=== PATIENT | female | born 1985 | race Caucasian/White ===

== ENCOUNTER → 2017-05-10 | Outpatient (CLI) | payer OTHER ==
--- NOTE | 2017-05-11 08:06 | NM ---
EXAMINATION TYPE: NM hepatobiliary w EF DATE OF EXAM: 05/10/2017 COMPARISON: NONE HISTORY: Right upper quadrant pain TECHNIQUE: After the intravenous administration of 5.28 mCi Tc 99m Mebrofenin hepatobiliary scintigra phy is performed. Immediate images post injection. FINDINGS: There is prompt uptake of the tracer by the liver that has normal size and contour. There is no focal defect. There is tracer in the small bowel at 10 minutes. Tracer is mostly cleared from the liver at 60 minutes. There is delayed appearance of tracer in the gallbladder. The poststimulation images kishan w gallbladder ejection fraction of 82%. IMPRESSION: Normal hepatobiliary scan.
== END | disposition home or self-care (01) ==
LOC: RADNMMAIN 13:11
PROVIDERS: ATTEND Pediatrics
DX: R10.11 Right upper quadrant pain (principal)
CPT/HCPCS: 78226; A9537

== ENCOUNTER → 2017-11-01 | Outpatient (CLI) | payer OTHER ==
--- NOTE | 2017-11-02 00:21 | MR ---
EXAMINATION TYPE: MR hand RT wo con DATE OF EXAM: 11/01/2017 COMPARISON: NONE HISTORY: Retained FB in rt hand, between 3rd webbing, pt states she has hair that comes out of small hole in this area Standard multiplanar, multisequence MRI departmental protocol Multiplanar, multisequence images of the right hand were acquired. FINDINGS: The metacarpals appear intact. The phalanges have normal signal pattern without evidence of edema. Joint spaces are fairly normal. I see no focal bone destruction. The flexor and extensor tend ons of the hand appear intact. The carpal bones appear intact. On the T1 coronal images there is a 6 mm rounded area of decreased signal on the skin surface and sub cutaneous tissues on the lateral aspect of the proximal fourth metacarpal. This should be correlated with physical exam. This could be a site of foreign body or foreign body reaction. IMPRESSION: 6 mm area of altered signal in the subcutaneous tissues as above adjacent to the fourth metacarpal on the lateral aspect that could be site of foreign body reaction or granuloma. No bony abnormality cathy ntified. No metal artifact seen. Foreign body is not characterized.
== END | disposition home or self-care (01) ==
LOC: RADMRIMAIN 20:03
PROVIDERS: ATTEND Orthopaedic Surgery
DX: Z18.9 Retained foreign body fragments, unspecified material (principal)

== ENCOUNTER → 2018-02-13 | Outpatient (CLI) | payer OTHER ==
--- NOTE | 2018-02-13 15:28 | FL ---
EXAMINATION TYPE: FL hysterosalpingography DATE OF EXAM: 02/13/2018 HISTORY: Infertility. PROCEDURE: 6 fluoroscopic images were obtained and 25 seconds of fluoroscopy time was utilized. Informed consent was obtained and all the patient's questions were answered. Preliminary film of the pelvis reveals no distinct abnormality. A speculum was introduced and the external cervical os was l ocalize. The external vagina and vaginal cuff was cleansed Betadine solution on 3 occasions. Hyster osalpingography catheter was introduced into the uterus and balloon insufflation device deployed. Ap proximately 8 cc of nonionic contrast was injected in a retrograde manner. The uterus has a normal size shape and appearance. No persistent uterine filling defects are seen. Initially the right fallopian tube did not fill with contrast spilling into the vaginal cuff, however upon increased pressure the right fallopian tube readily filled and subsequently there was bilateral spill of contrast into the peritoneal cavity. IMPRESSION: Patency of the fallopian tubes with bilateral spill of contrast into the peritoneal cavit y.
== END | disposition home or self-care (01) ==
LOC: RADFLWHC 13:26
PROVIDERS: ATTEND Obstetrics & Gynecology
DX: N97.9 Female infertility, unspecified (principal)
CPT/HCPCS: 58340; 74740; Q9967

== ENCOUNTER 2018-03-04 00:31 | Emergency (ER) | payer OTHER ==
[2018-03-04 00:38] VITALS: RESP 18
[2018-03-04] MEDS ORDERED: diphenhydrAMINE 50 MG/ML 1 ML VIAL IVP STA (01:44)
[2018-03-04] MEDS ORDERED: SODIUM CHLORIDE 0.9% 1,000 ML IV STA (01:44)
[2018-03-04] MEDS ORDERED: METOCLOPRAMIDE 5 MG/ML 2 ML VIAL IVP STA (01:44)
[2018-03-04] MEDS ORDERED: KETOROLAC 30 MG/ML 1 ML VIAL IVP STA (01:44)
--- NOTE | 2018-03-04 02:08 | ED ---
Headache HPI - General Chief Complaint: Headache Stated Complaint: Migraine Time Seen by Provider: 03/04/18 01:41 Source: patient, RN notes reviewed Mode of arrival: ambulatory Limitations: no limitations - History of Present Illness Initial Comments: This is a 32-year-old female who presents to the emergency department with chief complaint of migraine headache. Patient does report she has a history migraine headaches. She states that she has had this headache since Saturday intermittently. She states that she was taking Excedrin Migraine at home. She presented to her primary care physician this morning who gave her a shot of Toradol. She states that this did not help. She denies any recent falls, injury or trauma. She denies dizziness or vision changes. Denies fevers or chills. Does report associated nausea but denies vomiting or abdominal pain. - Related Data Home Medications Medication Instructions Recorded Confirmed traMADol HCl [Ultram] 50 mg PO Q6H PRN 10/28/14 03/04/18 Previous Rx's Medication Instructions Recorded Ibuprofen [Motrin] 800 mg PO Q6HR PRN #20 tab 10/28/14 Orphenadrine [Norflex] 100 mg PO Q12H #7 tablet.er 10/28/14 Allergies Allergy/AdvReac Type Severity Reaction Status Date / Time No Known Allergies Allergy Verified 03/04/18 00:38 Review of Systems ROS Statement: Those systems with pertinent positive or pertinent negative responses have been documented in the HPI. ROS Other: All systems not noted in ROS Statement are negative. Past Medical History Past Medical History: No Reported History History of Any Multi-Drug Resistant Organisms: None Reported Additional Past Surgical History / Comment(s): LEFT AND RIGHT HAND SURGERY Past Psychological History: ADD/ADHD Smoking Status: Never smoker Past Alcohol Use History: None Reported Past Drug Use History: None Reported General Exam - General Exam Comments Initial Comments: General: Awake and alert, well-developed; in no apparent distress. Lying comfortable on ED stretcher. HEENT: Head atraumatic, normocephalic. Pupils are equal, round and reactive to light. Extraocular movements intact. Oropharynx moist without erythema or exudate. Neck: Supple. Normal ROM. Cardiovascular: Regular rate and rhythm. No murmurs, rubs or gallops. Chest symmetrical. Respiratory: Lungs clear to auscultation bilaterally. No wheezes, rales or rhonchi. Normal respiratory effort with no use of accessory muscles. Musculoskeletal: Normal ROM, no tenderness bilateral upper and lower extremities. Ambulating normally. Skin: [place], warm and dry without rashes or lesions. Neurological: Alert and oriented x3. CN II-XII grossly intact. Speech is fluent and answers are appropriate. No focal neuro deficits. Psychiatric: Normal mood and affect. No overt signs of depression or anxiety noted. Limitations: no limitations Course Vital Signs 03/04/18 00:34 Temperature 98.2 F Pulse Rate 81 Respiratory 18 Rate Blood Pressure 124/85 O2 Sat by Pulse 94 L Oximetry Medical Decision Making - Medical Decision Making This is a 32-year-old female who presents to the emergency department with chief complaint of migraine headache. Patient does report a history of migraine headaches. This headache feels no different from her previous episodes. Patient given fluids and headache cocktail while in the emergency department. Patient states that her symptoms have improved. Vital signs are stable she is in no acute distress. She will be discharged home at this time. Disposition Clinical Impression: Headache Disposition: HOME SELF-CARE Condition: Good Instructions: Acute Headache (ED) Additional Instructions: Please follow up with primary care provider within 1-2 days. Return to emergency department if symptoms should worsen or any concerns arise. Is patient prescribed a controlled substance at d/c from ED?: No Referrals: Bairon Rm MD [Primary Care Provider] - 1-2 days Time of Disposition: 03:45
[2018-03-04 03:46] VITALS: BP 120/68; PULSE 89; TEMP 97.9
== END 2018-03-04 04:03 | disposition home or self-care (01) ==
LOC: EC 00:31
DX: R51 Headache (principal); Z86.69 Personal history of other diseases of the nervous system and sense organs
CPT/HCPCS: 99283; 96374; 96375 ×2; 96361 ×2; J1200; J2765; J1885

== ENCOUNTER 2018-03-05 10:40 | Emergency (ER) | payer OTHER ==
[2018-03-05 10:49] VITALS: TEMP 98
[2018-03-05] MEDS ORDERED: SODIUM CHLORIDE 0.9% 500 ML IV ONE (11:33)
[2018-03-05] MEDS ORDERED: LORazepam 2 MG/ML INJ IV STA (11:35)
[2018-03-05] MEDS ORDERED: IBUPROFEN IV 600 MG in SODIUM CHLORIDE 0.9% 250 ML IV STA (11:37)
[2018-03-05] MEDS ORDERED: PROMETHAZINE INJ 25 MG/ML 1 ML VIAL IM STA (11:38)
--- NOTE | 2018-03-05 11:39 | ED ---
General Adult HPI - General Chief complaint: Headache Stated complaint: Headache Time Seen by Provider: 03/05/18 10:45 Source: patient, RN notes reviewed Mode of arrival: ambulatory Limitations: no limitations - History of Present Illness Initial comments: This is a 32-year-old female who comes in complaining of a headache. Patient states started slowly on Saturday got worse until Saturday. She states on Saturday she went and saw her primary medical care doctor he gave her some medicine. It didn't help that much and later that evening she showed up at the emergency department. Patient states she received medication there felt better went home however Saturday was miserable all day and she went back and saw her primary medical care doctor again and was given some medication but she woke up this morning continued to have her headache. Patient states bilateral and frontal in nature she states it feels like a pressure. Patient states coughing or sneezing makes it pain worse. Patient denies any congestion or actual frontal bone tenderness. Patient denies any numbness or weakness. Patient denies any visual disturbance or speech disturbance. Patient states she did vomit once yesterday. Patient states she's nauseated today. Patient states she has occasional headaches but this one is different. Patient denies any diagnosis of migraine headaches. - Related Data Home Medications Medication Instructions Recorded Confirmed Omeprazole [Omeprazole] 40 mg PO DAILY 03/05/18 03/05/18 SUMAtriptan SUCCINATE [Sumavel 6 mg SQ ONCE PRN 03/05/18 03/05/18 Dosepro] Allergies Allergy/AdvReac Type Severity Reaction Status Date / Time No Known Allergies Allergy Verified 03/05/18 11:35 Review of Systems ROS Statement: Those systems with pertinent positive or pertinent negative responses have been documented in the HPI. ROS Other: All systems not noted in ROS Statement are negative. Past Medical History Past Medical History: No Reported History Additional Past Medical History / Comment(s): migraines History of Any Multi-Drug Resistant Organisms: None Reported Additional Past Surgical History / Comment(s): LEFT AND RIGHT HAND SURGERY Past Psychological History: ADD/ADHD Smoking Status: Never smoker Past Alcohol Use History: None Reported Past Drug Use History: None Reported General Exam - General Exam Comments Initial Comments: GENERAL: Patient is well-developed and well-nourished. Patient is nontoxic and well- hydrated and is in mild distress. ENT: Neck is soft and supple. No significant lymphadenopathy is noted. Oropharynx is clear. Moist mucous membranes. Neck has full range of motion without eliciting any pain. EYES: The sclera were anicteric and conjunctiva were pink and moist. Extraocular movements were intact and pupils were equal round and reactive to light. Eyelids were unremarkable. PULMONARY: Unlabored respirations. Good breath sounds bilaterally. No audible rales rhonchi or wheezing was noted. CARDIOVASCULAR: There is a regular rate and rhythm without any murmurs gallops or rubs. ABDOMEN: Soft and nontender with normal bowel sounds. SKIN: Skin is clear with no lesions or rashes and otherwise unremarkable. NEUROLOGIC: Patient is alert and oriented x3. Cranial nerves II through XII are grossly intact. Motor and sensory are also intact. Normal speech, volume and content. Symmetrical smile. Cerebellar exam grossly intact. Patient has no photophobia MUSCULOSKELETAL: Normal extremities with adequate strength and full range of motion. LYMPHATICS: No significant lymphadenopathy is noted PSYCHIATRIC: Normal psychiatric evaluation. Limitations: no limitations Course Vital Signs 03/05/18 03/05/18 10:46 14:38 Temperature 98.0 F Pulse Rate 87 70 Respiratory 18 16 Rate Blood Pressure 130/81 105/61 O2 Sat by Pulse 98 98 Oximetry Medical Decision Making - Medical Decision Making CT of the brain shows a possible pituitary hemorrhage. Radiology is recommending an MRI for confirmation. MRI was done MRI did show a pituitary bleed. - Lab Data Result diagrams: 03/05/18 11:47 03/05/18 11:47 Lab Results 03/05/18 03/05/18 03/05/18 Range/Units 11:47 11:47 12:15 WBC 9.0 (3.8-10.6) k/uL RBC 4.83 (3.80-5.40) m/uL Hgb 14.4 (11.4-16.0) gm/dL Hct 41.2 (34.0-46.0) % MCV 85.3 (80.0-100.0) fL MCH 29.8 (25.0-35.0) pg MCHC 34.9 (31.0-37.0) g/dL RDW 13.2 (11.5-15.5) % Plt Count 269 (150-450) k/uL Neutrophils % 80 % Lymphocytes % 15 % Monocytes % 3 % Eosinophils % 1 % Basophils % 0 % Neutrophils # 7.2 (1.3-7.7) k/uL Lymphocytes # 1.3 (1.0-4.8) k/uL Monocytes # 0.3 (0-1.0) k/uL Eosinophils # 0.1 (0-0.7) k/uL Basophils # 0.0 (0-0.2) k/uL Sodium 142 (137-145) mmol/L Potassium 4.3 (3.5-5.1) mmol/L Chloride 106 (98-107) mmol/L Carbon Dioxide 22 (22-30) mmol/L Anion Gap 14 mmol/L BUN 11 (7-17) mg/dL Creatinine 0.68 (0.52-1.04) mg/dL Est GFR (CKD-EPI)AfAm >90 (>60 ml/min/1.73 sqM) Est GFR (CKD-EPI)NonAf >90 (>60 ml/min/1.73 sqM) Glucose 115 H (74-99) mg/dL Calcium 9.2 (8.4-10.2) mg/dL Total Bilirubin 0.7 (0.2-1.3) mg/dL AST 21 (14-36) U/L ALT 42 (9-52) U/L Alkaline Phosphatase 49 (38-126) U/L Total Protein 7.3 (6.3-8.2) g/dL Albumin 4.6 (3.5-5.0) g/dL Urine Color Urine Appearance (Clear) Urine pH (5.0-8.0) Ur Specific [place] (1.001-1.035) Urine Protein (Negative) Urine Glucose (UA) (Negative) Urine Ketones (Negative) Urine Blood (Negative) Urine Nitrite (Negative) Urine Bilirubin (Negative) Urine Urobilinogen (<2.0) mg/dL Ur Leukocyte Esterase (Negative) Urine WBC (0-5) /hpf Ur Squamous Epith Cells (0-4) /hpf Amorphous Sediment (None) /hpf Urine Bacteria (None) /hpf Urine Mucus (None) /hpf Urine HCG, Qual Not Detected (Not Detectd) 03/05/18 Range/Units 12:15 WBC (3.8-10.6) k/uL RBC (3.80-5.40) m/uL Hgb (11.4-16.0) gm/dL Hct (34.0-46.0) % MCV (80.0-100.0) fL MCH (25.0-35.0) pg MCHC (31.0-37.0) g/dL RDW (11.5-15.5) % Plt Count (150-450) k/uL Neutrophils % % Lymphocytes % % Monocytes % % Eosinophils % % Basophils % % Neutrophils # (1.3-7.7) k/uL Lymphocytes # (1.0-4.8) k/uL Monocytes # (0-1.0) k/uL Eosinophils # (0-0.7) k/uL Basophils # (0-0.2) k/uL Sodium (137-145) mmol/L Potassium (3.5-5.1) mmol/L Chloride (98-107) mmol/L Carbon Dioxide (22-30) mmol/L Anion Gap mmol/L BUN (7-17) mg/dL Creatinine (0.52-1.04) mg/dL Est GFR (CKD-EPI)AfAm (>60 ml/min/1.73 sqM) Est GFR (CKD-EPI)NonAf (>60 ml/min/1.73 sqM) Glucose (74-99) mg/dL Calcium (8.4-10.2) mg/dL Total Bilirubin (0.2-1.3) mg/dL AST (14-36) U/L ALT (9-52) U/L Alkaline Phosphatase (38-126) U/L Total Protein (6.3-8.2) g/dL Albumin (3.5-5.0) g/dL Urine Color Yellow Urine Appearance Cloudy H (Clear) Urine pH 7.5 (5.0-8.0) Ur Specific [place] 1.015 (1.001-1.035) Urine Protein Negative (Negative) Urine Glucose (UA) Negative (Negative) Urine Ketones Negative (Negative) Urine Blood Negative (Negative) Urine Nitrite Positive H (Negative) Urine Bilirubin Negative (Negative) Urine Urobilinogen <2.0 (<2.0) mg/dL Ur Leukocyte Esterase Small H (Negative) Urine WBC 3 (0-5) /hpf Ur Squamous Epith Cells 10 H (0-4) /hpf Amorphous Sediment Few H (None) /hpf Urine Bacteria Few H (None) /hpf Urine Mucus Occasional H (None) /hpf Urine HCG, Qual (Not Detectd) Disposition Clinical Impression: Pituitary hemorrhage Disposition: OTHER INSTITUTION NOT DEFINED Is patient prescribed a controlled substance at d/c from ED?: No Referrals: Bairon Rm MD [Primary Care Provider] - 1-2 days Time of Disposition: 16:16 - Out of Hospital Transfer - Req. Specs Out of Hospital Transfer - Requested Specifics: Other Emergency Center ([facility])
[2018-03-05 11:57] LABS: Basophils % (A) 0 %; Eosinophils # (A) 0.1 k/uL (0-0.7); Eosinophils % (A) 1 %; HCT 41.2 % (34.0-46.0); HGB 14.4 gm/dL (11.4-16.0); Lymphocytes # (A) 1.3 k/uL (1.0-4.8); Lymphocytes % (A) 15 %; MCH 29.8 pg (25.0-35.0); MCHC 34.9 g/dL (31.0-37.0); MCV 85.3 fL (80.0-100.0); Monocytes # (A) 0.3 k/uL (0-1.0); Monocytes % (A) 3 %; Neutrophils # (A) 7.2 k/uL (1.3-7.7); Neutrophils % (A) 80 %; Platelet Count 269 k/uL (150-450); RBC 4.83 m/uL (3.80-5.40); RDW 13.2 % (11.5-15.5)
[2018-03-05 12:06] LABS: ALT 42 U/L (9-52); AST 21 U/L (14-36); Albumin 4.6 g/dL (3.5-5.0); Alkaline Phosphatase 49 U/L (38-126); Anion Gap 14 mmol/L; Blood Urea Nitrogen 11 mg/dL (7-17); Calcium 9.2 mg/dL (8.4-10.2); Carbon Dioxide 22 mmol/L (22-30); Chloride 106 mmol/L (98-107); Glucose 115 mg/dL (74-99); Potassium 4.3 mmol/L (3.5-5.1); Sodium 142 mmol/L (137-145); Total Bilirubin 0.7 mg/dL (0.2-1.3); Total Protein 7.3 g/dL (6.3-8.2)
[2018-03-05 12:45] LABS: Amorphous Sediment,Urine Few /hpf; Appearance,Urine Cloudy (Clear); Bacteria,Urine Few /hpf; Bilirubin,Urine Negative (Negative); Blood,Urine Negative (Negative); Color,Urine Yellow; Glucose,Urine (UA) Negative (Negative); Ketones,Urine Negative (Negative); Leukocyte Esterase,Urine Small (Negative); Mucus,Urine Occasional /hpf; Nitrite,Urine Positive (Negative); PH, Urine 7.5 (5.0-8.0); Protein,Urine Negative (Negative); Specific Gravity,Urine 1.015 (1.001-1.035); Squamous Epithelial Cell,Urine 10 /hpf (0-4); Urobilinogen,Urine <2.0 mg/dL (<2.0); WBC,Urine 3 /hpf (0-5)
--- NOTE | 2018-03-05 13:46 | CT ---
EXAMINATION TYPE: CT brain wo con DATE OF EXAM: 03/05/2018 COMPARISON: NONE INDICATION: Headache DLP: 1121 mGycm, Automated exposure control for dose reduction was used. CONTRAST: None CT of the brain is performed utilizing 3 mm thick sections through the posterior fossa and 3 mm thick sections through the remaining calvarium. Study is performed within 24 hours of arrival to the hosp ital. No abnormal hyperdensity is present to suggest an acute intracranial hemorrhage. No mass lesion is evident. There is fullness in the pituitary region which does not appear out of pro portion to the patient's age. However, the density within the pituitary is slightly increased and the re is some increased density into the left and right suprasellar cistern region. This is felt to pote ntially be artifact similar to artifact in the posterior fossa adjacent to the calvarium. However, gi garry the patient's symptoms of headache the potential of pituitary hemorrhage should be considered. Co nsensus review was performed. MRI with contrast would be recommended to evaluate this region. Report was called to the emergency room physician by Dr. Lynn by telephone 1330 hours 03/05/2018. No acute infarcts are evident. Ventricles and sulci are appropriate for the patient age. Paranasal sinuses and mastoid air cells within the [id number] are clear. IMPRESSIONS: 1. Increased density in the region of the suprasellar cistern and in the pituitary region. While ar tifact is suspected, hemorrhage cannot be excluded. MRI with contrast of the pituitary is recommended for additional evaluation.
[2018-03-05 14:39] VITALS: RESP 16
--- NOTE | 2018-03-05 15:50 | MR ---
EXAMINATION TYPE: MR pituitary wo/w con DATE OF EXAM: 03/05/2018 COMPARISON: CT brain 03/05/2018 HISTORY: Headaches CONTRAST: Performed utilizing 10 mL intravenous Gadavist gadolinium contrast. TECHNIQUE: Multiplanar, multiecho imaging on a 3.0 Darshana magnet is performed through the pituitary. Study is performed within 24 hours of arrival to the hospital. Pre and postcontrast imaging is perfor med. The craniovertebral junction is normal. The pituitary is enlarged and smooth bordered measuring 1.3 cm craniocaudal dimension by 2.1 cm trans verse dimension by 1.3 cm in AP dimension. Within the lower portion of the pituitary on T1 sequences there is hyperintensity measuring approximately 0.7 cm previous is anterior to the expected posterior portion of the pituitary. This area is larger with low signal on T2-weighted images ([place] artifa ct) which can be compatible with a subacute hemorrhage within this region. Differential diagnosis cou ld include craniopharyngioma or Rathke's cleft cyst however the epicenter suggest these to be less li vanessa. The enlarged pituitary extends to the optic chiasm with very minimal bowing noted on the optic chiasm on the T2-weighted images in the coronal plane. The pituitary stalk appears midline. The enlarged pi tuitary has contact with the bilateral internal carotid arteries at the carotid siphons. No encasemen t however is evident. IMPRESSIONS: 1. Enlarged pituitary with internal signal compatible with internal pituitary hemorrhage. No free hem orrhage within the extra-axial space is not identified.
[2018-03-05 16:40] LABS: INR 1.1 (<1.2); Partial Thromboplastin Time 24.2 sec (22.0-30.0); Prothrombin Time 10.4 sec (9.0-12.0)
[2018-03-05 17:17] VITALS: BP 128/78; PULSE 68
== END 2018-03-05 17:05 | disposition other institution (70) ==
LOC: EC 10:40
DX: E23.6 Other disorders of pituitary gland (principal); R51 Headache; R11.2 Nausea with vomiting, unspecified; Z79.899 Other long term (current) drug therapy
CPT/HCPCS: 36415; 80053; 85025; 85610; 85730; 81001; 81025; 87086; 70450; 70553; 99285; 96365; 96375; 96372; J2060; J2550; J1741; A9581

== ENCOUNTER 2018-03-09 16:22 | Emergency (ER) | payer OTHER ==
[2018-03-09] MEDS ORDERED: SODIUM CHLORIDE 0.9% 1,000 ML IV STA (16:50)
[2018-03-09] MEDS ORDERED: ONDANSETRON 4 MG/2 ML VIAL IVP STA (16:51)
[2018-03-09] MEDS ORDERED: ACETAMINOPHEN TAB 500 MG TAB PO STA (16:56)
[2018-03-09] MEDS ORDERED: METOCLOPRAMIDE 5 MG/ML 2 ML VIAL IVP STA (16:56)
--- NOTE | 2018-03-09 17:02 | ED ---
General Adult HPI - General Chief complaint: Headache Stated complaint: Headache Source: patient Mode of arrival: wheelchair Limitations: no limitations - History of Present Illness Initial comments: Chief Complaint: 32-year-old female past medical history of polycystic ovarian syndrome presents with headache. History of Present Illness: Patient is a 32-year-old female with past medical history polycystic ovarian syndrome presents with headache. Patient was seen here twice last week. She was seen Saturday for chief complaint of headache. She was discharged home. On Saturday she return where computed tomography scan was performed showing disease to the pituitary gland. MRI was then performed showing possible hemorrhage in the pituitary gland. She was transferred to [facility] in [place] where she was evaluated by their medical team. Patient is completely by family who states that she was seen there and repeat MRI was obtained. She was discharged with instructions to follow up with primary care physician and neurologist. Patient has an appointment for Saturday. Today she began having worsening headache symptoms and associated nausea and vomiting. The plan was to take patient to [facility] however they didn' t feel like they could make it in time. The live locally and decided to bring her to our emergency department. Patient denies any fever, chills or night sweats. No neurologic deficit. She localizes the headache to her right frontal area. Family accompanies patient reports that they had checked her optic disc and was told by their medical staff that there was no papilledema. Past Medical History: PCOS Past Surgical History:[reviewed, none to report] Social History: [denies alcohol, tobacco or illicit drug use] Family History: reviewed and noncontributory The ROS documented in this emergency department record has been reviewed and confirmed by me. Those systems with pertinent positive or negative responses have been documented in the HPI. All other systems are other negative and/or noncontributory. - Related Data Home Medications Medication Instructions Recorded Confirmed Omeprazole [Omeprazole] 40 mg PO DAILY 03/05/18 03/05/18 SUMAtriptan SUCCINATE [[place]avel 6 mg SQ ONCE PRN 03/05/18 03/05/18 Dosepro] Previous Rx's Medication Instructions Recorded HYDROcodone/APAP 5-325MG [[place] 1 tab PO Q6HR PRN 3 Days #12 tab 03/09/18 5-325] Sulfamethox-Tmp 800-160Mg [Bactrim 1 tab PO Q12HR 5 Days #10 tab 03/09/18 DS 800-160 mg] Allergies Allergy/AdvReac Type Severity Reaction Status Date / Time No Known Allergies Allergy Verified 03/09/18 16:27 Review of Systems ROS Statement: Those systems with pertinent positive or pertinent negative responses have been documented in the HPI. ROS Other: All systems not noted in ROS Statement are negative. Past Medical History Past Medical History: No Reported History Additional Past Medical History / Comment(s): migraines History of Any Multi-Drug Resistant Organisms: None Reported Additional Past Surgical History / Comment(s): LEFT AND RIGHT HAND SURGERY Past Psychological History: ADD/ADHD Smoking Status: Never smoker Past Alcohol Use History: None Reported Past Drug Use History: None Reported General Exam - General Exam Comments Initial Comments: Vitals: Vital signs upon arrival shows findings within acceptable limits. PHYSICAL EXAM: General Impression: Alert and oriented x3, acute distress secondary to headache HEENT: Normocephalic atraumatic, extra-ocular movements intact, pupils equal and reactive to light bilaterally, mucous membranes moist. Cardiovascular: Heart regular rate and rhythm, S1&S2 audible, no murmurs, rubs or gallops Chest: Lungs clear to auscultation bilaterally, no rhonchi, no wheeze, no rales Abdomen: Bowel sounds present, abdomen soft, non-tender, non-distended, no organomegaly Musculoskeletal: Pulses present and equal in all extremities, no peripheral edema Motor: Power 5/5 bilaterally, no focal deficits noted Neurological: CN II-XII grossly intact, no focal motor or sensory deficits noted Skin: Intact with no visualized rashes Psych: Normal affect and mood Limitations: no limitations Course Vital Signs 03/09/18 03/09/18 03/09/18 16:25 18:37 19:33 Temperature 98.1 F 97.6 F Pulse Rate 91 59 L 59 L Respiratory 20 16 17 Rate Blood Pressure 124/84 119/67 132/73 O2 Sat by Pulse 97 99 96 Oximetry Medical Decision Making - Medical Decision Making Patient is a 32-year-old female who was 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 Patient has a complex medical course. She was seen at [facility] were repeat MRI was performed. She was then discharged told to follow up with neurologist. Patient denies any worsening of her symptoms however complains of persistent symptoms. Repeat labs obtained. Patient has mild leukocytosis secondary to stress. Basic metabolic panel shows acute processes. Urinalysis shows findings to suggest urinary tract infection. Discussed patient case with neurologist transportation refrigeration technician Dr. Cuellar and recommends repeat computed tomography scan of the head. Repeat computed tomography scan of the head shows improvement of findings compared to Saturday of last week. Patient reevaluated with improvement of symptoms. Patient given IV analgesics. Discussed patient that she should follow-up with neurology as soon as possible. Patient given follow-up information for Dr. cuellar. Patient is understandable and agreeable to plan. She is told to return to the emergency Department with any worsening headache symptoms. - Lab Data Result diagrams: 03/09/18 18:12 03/09/18 18:12 Lab Results 03/09/18 03/09/18 03/09/18 Range/Units 18:12 18:12 18:12 WBC 13.3 H (3.8-10.6) k/uL RBC 5.24 (3.80-5.40) m/uL Hgb 15.3 (11.4-16.0) gm/dL Hct 44.6 (34.0-46.0) % MCV 85.2 (80.0-100.0) fL MCH 29.3 (25.0-35.0) pg MCHC 34.4 (31.0-37.0) g/dL RDW 13.2 (11.5-15.5) % Plt Count 342 (150-450) k/uL Neutrophils % 82 % Lymphocytes % 12 % Monocytes % 4 % Eosinophils % 1 % Basophils % 0 % Neutrophils # 10.9 H (1.3-7.7) k/uL Lymphocytes # 1.6 (1.0-4.8) k/uL Monocytes # 0.6 (0-1.0) k/uL Eosinophils # 0.1 (0-0.7) k/uL Basophils # 0.0 (0-0.2) k/uL Sodium 140 (137-145) mmol/L Potassium 4.6 (3.5-5.1) mmol/L Chloride 103 (98-107) mmol/L Carbon Dioxide 23 (22-30) mmol/L Anion Gap 14 mmol/L BUN 19 H (7-17) mg/dL Creatinine 0.70 (0.52-1.04) mg/dL Est GFR (CKD-EPI)AfAm >90 (>60 ml/min/1.73 sqM) Est GFR (CKD-EPI)NonAf >90 (>60 ml/min/1.73 sqM) Glucose 102 H (74-99) mg/dL Calcium 9.2 (8.4-10.2) mg/dL Urine Color Yellow Urine Appearance Cloudy H (Clear) Urine pH 6.5 (5.0-8.0) Ur Specific Robert 1.022 (1.001-1.035) Urine Protein Trace H (Negative) Urine Glucose (UA) Negative (Negative) Urine Ketones 1+ H (Negative) Urine Blood Negative (Negative) Urine Nitrite Positive H (Negative) Urine Bilirubin Negative (Negative) Urine Urobilinogen <2.0 (<2.0) mg/dL Ur Leukocyte Esterase Small H (Negative) Urine RBC 2 (0-5) /hpf Urine WBC 3 (0-5) /hpf Ur Squamous Epith Cells 11 H (0-4) /hpf Urine Bacteria Many H (None) /hpf Urine Mucus Many H (None) /hpf Disposition Clinical Impression: Pituitary abnormality Disposition: HOME SELF-CARE Condition: Stable Prescriptions: HYDROcodone/APAP 5-325MG [[place] 5-325] 1 tab PO Q6HR PRN 3 Days #12 tab PRN Reason: Pain Sulfamethox-Tmp 800-160Mg [Bactrim DS 800-160 mg] 1 tab PO Q12HR 5 Days #10 tab Is patient prescribed a controlled substance at d/c from ED?: Yes When asked, does pt state using other controlled substances?: No Referrals: Bairon Rm MD [Primary Care Provider] - 1-2 days Zandra Cuellar MD [STAFF PHYSICIAN] - 1-2 days Time of Disposition: 19:51
[2018-03-09 18:28] LABS: Basophils % (A) 0 %; Eosinophils # (A) 0.1 k/uL (0-0.7); Eosinophils % (A) 1 %; HCT 44.6 % (34.0-46.0); HGB 15.3 gm/dL (11.4-16.0); Lymphocytes # (A) 1.6 k/uL (1.0-4.8); Lymphocytes % (A) 12 %; MCH 29.3 pg (25.0-35.0); MCHC 34.4 g/dL (31.0-37.0); MCV 85.2 fL (80.0-100.0); Monocytes # (A) 0.6 k/uL (0-1.0); Monocytes % (A) 4 %; Neutrophils # (A) 10.9 k/uL (1.3-7.7); Neutrophils % (A) 82 %; Platelet Count 342 k/uL (150-450); RBC 5.24 m/uL (3.80-5.40); RDW 13.2 % (11.5-15.5); WBC 13.3 k/uL (3.8-10.6)
[2018-03-09 18:31] LABS: Appearance,Urine Cloudy (Clear); Bacteria,Urine Many /hpf; Bilirubin,Urine Negative (Negative); Blood,Urine Negative (Negative); Color,Urine Yellow; Glucose,Urine (UA) Negative (Negative); Ketones,Urine 1+ (Negative); Leukocyte Esterase,Urine Small (Negative); Mucus,Urine Many /hpf; Nitrite,Urine Positive (Negative); PH, Urine 6.5 (5.0-8.0); Protein,Urine Trace (Negative); RBC,Urine 2 /hpf (0-5); Specific Gravity,Urine 1.022 (1.001-1.035); Squamous Epithelial Cell,Urine 11 /hpf (0-4); Urobilinogen,Urine <2.0 mg/dL (<2.0); WBC,Urine 3 /hpf (0-5)
[2018-03-09 18:41] LABS: Anion Gap 14 mmol/L; Blood Urea Nitrogen 19 mg/dL (7-17); Calcium 9.2 mg/dL (8.4-10.2); Carbon Dioxide 23 mmol/L (22-30); Chloride 103 mmol/L (98-107); Glucose 102 mg/dL (74-99); Potassium 4.6 mmol/L (3.5-5.1); Sodium 140 mmol/L (137-145)
--- NOTE | 2018-03-09 19:32 | CT ---
EXAMINATION TYPE: CT brain wo con DATE OF EXAM: 03/09/2018 COMPARISON: 03/05/2018 HISTORY: Headache x 10 days with photophobia and nausea, vomiting. CT DLP: 818.3 mGycm. Automated Exposure Control for Dose Reduction was Utilized. TECHNIQUE: CT scan of the head is performed without contrast. FINDINGS: Ventricles and sulci appear normal. There is no mass effect nor midline shift. There is no sign of acute intracranial hemorrhage. The calvarium is intact. There is prominent pituitary gland. 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 This appears smaller than l ast CT scan of 03/05/2018 and MR scan of 03/05/2018.
[2018-03-09] MEDS ORDERED: MORPHINE SULFATE 2 MG/ML SYRINGE IVP PRN (19:39)
[2018-03-09 20:25] VITALS: BP 119/74; PULSE 56; RESP 18; TEMP 98.3
== END 2018-03-09 20:25 | disposition home or self-care (01) ==
LOC: EC 16:22
DX: E23.7 Disorder of pituitary gland, unspecified (principal); R11.2 Nausea with vomiting, unspecified; D72.829 Elevated white blood cell count, unspecified; Z87.42 Personal history of other diseases of the female genital tract; Z79.899 Other long term (current) drug therapy
CPT/HCPCS: 36415; 80048; 85025; 81001; 70450; 99284; 96374; 96375; 96361 ×3; J2765; J2270

== ENCOUNTER → 2020-10-20 | Outpatient (CLI) | payer SELFPAY | END | disposition home or self-care (01) | LOC: LABWHC1 08:03 | PROVIDERS: ATTEND Obstetrics & Gynecology Reproductive Endocrinology | DX: Z01.812 Encounter for preprocedural laboratory examination (principal); Z20.822 Contact with and (suspected) exposure to COVID-19 | CPT/HCPCS: U0003; C9803 ==

== ENCOUNTER → 2020-10-31 | Outpatient (CLI) | payer OTHER | END | disposition home or self-care (01) | LOC: LABWHC1 13:49 | PROVIDERS: ATTEND Obstetrics & Gynecology Reproductive Endocrinology | DX: E28.2 Polycystic ovarian syndrome (principal) | CPT/HCPCS: 36415; 83498 ==

== ENCOUNTER → 2020-12-08 | Outpatient (CLI) | payer OTHER ==
[2020-12-09 02:54] LABS: Luteinizing Hormone 5.9 mIU/mL
[2020-12-09 02:55] LABS: Estradiol 35.3 pg/mL; Follicle Stimulating Hormone 5.4 mIU/mL
[2020-12-09 04:15] LABS: HCG,Quantitative Serum <2.0 mIU/mL
[2020-12-09 05:07] LABS: Varicella IgM Antibody 0.41 INDEX (<=0.90)
[2020-12-09 07:33] LABS: Progesterone 0.3 ng/mL
== END | disposition home or self-care (01) ==
LOC: LABWHC1 15:19
PROVIDERS: ATTEND Obstetrics & Gynecology Reproductive Endocrinology
DX: Z31.69 Encounter for other general counseling and advice on procreation (principal)
CPT/HCPCS: 36415; 81240; 82670; 83001; 83002; 84144; 84443; 84702; 86762; 86787; 86850; 86900; 86901

== ENCOUNTER 2020-12-28 18:27 | Emergency (ER) | payer OTHER ==
[2020-12-28 20:27] VITALS: RESP 18
--- NOTE | 2020-12-28 22:10 | ED ---
URI HPI - General Chief Complaint: Upper Respiratory Infection Stated Complaint: Covid+/sob/cough Time Seen by Provider: 12/28/20 20:38 Source: patient Mode of arrival: ambulatory Limitations: no limitations - History of Present Illness Initial Comments: 35-year-old female patient presents to the emergency department today for evaluation of chest pressure and shortness of breath. She was diagnosed with COVID a few days ago. States that she also has sore throat and nasal congestion. Denies history of chronic lung conditions. Denies smoking. States she did take some Mucinx DM without relief. States she is eating and drinking. Denies any fevers. Started steroids from her doctor today. Patient denies any recent rash, chest pain, abdominal pain, nausea, vomiting, diarrhea, constipation, back pain, numbness, tingling, dizziness, weakness, hematuria, dysuria, urinary urgency, urinary frequency, headache, visual changes, or any other complaints. - Related Data Home Medications Medication Instructions Recorded Confirmed Omeprazole 40 mg PO DAILY 03/05/18 03/05/18 SUMAtriptan SUCCINATE [Sumavel 6 mg SQ ONCE PRN 03/05/18 03/05/18 Dosepro] Previous Rx's Medication Instructions Recorded HYDROcodone/APAP 5-325MG [[place] 1 tab PO Q6HR PRN 3 Days #12 tab 03/09/18 5-325] Sulfamethox-Tmp 800-160Mg [Bactrim 1 tab PO Q12HR 5 Days #10 tab 03/09/18 DS 800-160 mg] Albuterol Sulfate [Proair Hfa] 1 - 2 puff INHALATION Q6HR PRN #1 12/28/20 inhaler Allergies Allergy/AdvReac Type Severity Reaction Status Date / Time No Known Allergies Allergy Verified 12/28/20 20:28 Review of Systems ROS Statement: Those systems with pertinent positive or pertinent negative responses have been documented in the HPI. ROS Other: All systems not noted in ROS Statement are negative. Past Medical History Past Medical History: No Reported History Additional Past Medical History / Comment(s): migraines History of Any Multi-Drug Resistant Organisms: None Reported Additional Past Surgical History / Comment(s): LEFT AND RIGHT HAND SURGERY Past Psychological History: ADD/ADHD Smoking Status: Never smoker Past Alcohol Use History: None Reported Past Drug Use History: None Reported General Exam Limitations: no limitations General appearance: alert, in no apparent distress, other (Physical well- developed, well-nourished adult female patient in no acute distress. Vital signs upon presentation temperature 98.6F, pulse 98, respirations 18, blood pressure 173/78, pulse ox 98% on room air.) Eye exam: Present: normal appearance, PERRL, EOMI. Absent: scleral icterus, conjunctival injection, periorbital swelling ENT exam: Present: normal exam, normal oropharynx, mucous membranes moist Respiratory exam: Present: normal lung sounds bilaterally. Absent: respiratory distress, wheezes, rales, rhonchi, stridor Cardiovascular Exam: Present: regular rate, normal rhythm, normal heart sounds. Absent: systolic murmur, diastolic murmur, rubs, gallop, clicks GI/Abdominal exam: Present: soft, normal bowel sounds. Absent: distended, tenderness, guarding, rebound, rigid Neurological exam: Present: alert, oriented X3, CN II-XII intact Psychiatric exam: Present: normal affect, normal mood Skin exam: Present: warm, dry, intact, normal color. Absent: rash Course Vital Signs 12/28/20 12/28/20 20:25 22:13 Temperature 98.6 F 97.8 F Pulse Rate 98 79 Respiratory 18 18 Rate Blood Pressure 173/78 123/83 O2 Sat by Pulse 98 96 Oximetry Medical Decision Making - Medical Decision Making 35-year-old female patient presents to the emergency department today for evaluation of chest pressure and shortness of breath. Diagnosed with COVID a few days ago. Physical examination is unremarkable. Lungs are clear to auscultation. Chest x-ray did show subtle opacities possibly early infiltrates. Vital signs within normal ranges. Oxygen saturation is satisfactory. She did start steroids today. We will discharge with prescription for pro-air. Instructed to increase fluids and follow-up through primary care physician for recheck in 1-2 days. Return parameters were discussed in detail. She verbalizes understanding and agrees with this plan. Case discussed with my attending Dr. Kim. - Radiology Data Radiology results: report reviewed, image reviewed Two-view x-ray of the chest is obtained. Report was reviewed in its entirety. Impression by Dr. Mccain shows subtle mild right basilar opacity, concerning for infiltrates. Disposition Clinical Impression: COVID-19 Disposition: HOME SELF-CARE Condition: Good Instructions (If sedation given, give patient instructions): Coronavirus Disease 2019 (COVID-19) Additional Instructions: Use inhaler 2 puffs every 4-6 hours. Complete steroid prescription and full. Continue taking Mucinex. Rest. Follow-up with her primary care physician for recheck in 1-2 days. Return to the emergency department for any new, worsening, or concerning symptoms. Prescriptions: Albuterol Sulfate [Proair Hfa] 1 - 2 puff INHALATION Q6HR PRN #1 inhaler PRN Reason: Shortness Of Breath Is patient prescribed a controlled substance at d/c from ED?: No Referrals: Bairon Rm MD [Primary Care Provider] - 1-2 days Time of Disposition: 22:25
[2020-12-28 22:14] VITALS: BP 123/83; PULSE 79; TEMP 97.8
--- NOTE | 2020-12-28 22:21 | XR ---
EXAMINATION TYPE: XR chest 2V DATE OF EXAM: 12/28/2020 COMPARISON: NONE HISTORY: Cough and shortness of breath. TECHNIQUE: Frontal and lateral views of the chest are obtained. FINDINGS: There is subtle mild right basilar hazy opacity. No pleural effusion, or pneumothorax seen . The cardiac silhouette size is within normal limits. The osseous structures are intact. IMPRESSION: Subtle mild right basilar opacity, concerning for infiltrates.
== END 2020-12-28 23:02 | disposition home or self-care (01) ==
LOC: EC 18:27
DX: U07.1 COVID-19 (principal); F90.9 Attention-deficit hyperactivity disorder, unspecified type
CPT/HCPCS: 71046; 99285

== ENCOUNTER → 2021-02-23 | Outpatient (CLI) | payer OTHER ==
[2021-02-23 08:55] LABS: HCG,Quantitative Serum <2.4 mIU/mL
[2021-02-24 06:29] LABS: Luteinizing Hormone 4.6 mIU/mL
[2021-02-24 06:31] LABS: Estradiol 43.3 pg/mL; Follicle Stimulating Hormone 4.8 mIU/mL
== END | disposition home or self-care (01) ==
LOC: LABWHC1 07:22
PROVIDERS: ATTEND Obstetrics & Gynecology Reproductive Endocrinology
DX: N91.2 Amenorrhea, unspecified (principal)
CPT/HCPCS: 36415; 82670; 83001; 83002; 84144; 84702

== ENCOUNTER → 2021-06-02 | Outpatient (CLI) | payer OTHER ==
[2021-06-02 08:30] LABS: HCG,Quantitative Serum <2.4 mIU/mL
[2021-06-02 22:26] LABS: Estradiol 35.6 pg/mL; Follicle Stimulating Hormone 5.1 mIU/mL; Luteinizing Hormone 5.2 mIU/mL
== END | disposition home or self-care (01) ==
LOC: LABWHC1 06:58
PROVIDERS: ATTEND Obstetrics & Gynecology Reproductive Endocrinology
DX: N91.2 Amenorrhea, unspecified (principal)
CPT/HCPCS: 36415; 82670; 83001; 83002; 84144; 84702

== ENCOUNTER → 2021-08-07 | Outpatient (CLI) | payer OTHER | END | disposition home or self-care (01) | LOC: LABWHC1 07:38 | PROVIDERS: ATTEND Obstetrics & Gynecology Reproductive Endocrinology | DX: Z01.812 Encounter for preprocedural laboratory examination (principal); Z20.822 Contact with and (suspected) exposure to COVID-19 | CPT/HCPCS: 84702; 36415; U0003; C9803; U0005 ==

== ENCOUNTER → 2021-08-14 | Outpatient (CLI) | payer OTHER | END | disposition home or self-care (01) | LOC: LABWHC1 11:11 | PROVIDERS: ATTEND Obstetrics & Gynecology Reproductive Endocrinology | DX: Z01.812 Encounter for preprocedural laboratory examination (principal); Z20.822 Contact with and (suspected) exposure to COVID-19 | CPT/HCPCS: U0003; C9803 ==

== ENCOUNTER → 2021-08-29 | Outpatient (CLI) | payer OTHER | END | disposition home or self-care (01) | LOC: LABWHC1 16:18 | PROVIDERS: ATTEND Obstetrics & Gynecology Reproductive Endocrinology | DX: Z01.812 Encounter for preprocedural laboratory examination (principal); Z20.822 Contact with and (suspected) exposure to COVID-19 | CPT/HCPCS: U0003; C9803 ==

== ENCOUNTER → 2021-09-04 | Outpatient (CLI) | payer OTHER | END | disposition home or self-care (01) | LOC: LABWHC1 10:20 | PROVIDERS: ATTEND Obstetrics & Gynecology Reproductive Endocrinology | DX: E28.2 Polycystic ovarian syndrome (principal) | CPT/HCPCS: 36415; 82670; 84144 ==

== ENCOUNTER → 2021-09-11 | Outpatient (CLI) | payer OTHER | END | disposition home or self-care (01) | LOC: LABWHC1 07:01 | PROVIDERS: ATTEND Obstetrics & Gynecology Reproductive Endocrinology | DX: E28.2 Polycystic ovarian syndrome (principal) | CPT/HCPCS: 36415; 82670; 84144; 84443; 84702 ==

== ENCOUNTER → 2021-09-14 | Outpatient (CLI) | payer OTHER ==
[2021-09-14 07:55] LABS: HCG,Quantitative Serum 234.1 mIU/mL
== END | disposition home or self-care (01) ==
LOC: LABWHC1 06:53
PROVIDERS: ATTEND Obstetrics & Gynecology Reproductive Endocrinology
DX: E28.2 Polycystic ovarian syndrome (principal)
CPT/HCPCS: 36415; 82670; 84144; 84702

== ENCOUNTER → 2021-09-20 | Outpatient (CLI) | payer OTHER ==
--- NOTE | 2021-09-20 19:40 | CONS ---
CONSULTATION DATE OF SERVICE: 09/20/2021 36-year-old lady has been evaluated in [facility] for multiple awakenings from sleep, feeling tiredness and sleepiness during the day. Also twitching legs during sleep. HISTORY OF PRESENT ILLNESS SLEEP-WAKE EVALUATION: The patient had a home sleep apnea test done by another institution in March of 2021 which showed apnea-hypopnea index only 0.7 which is totally normal, but oxygen level came down to 79% and oxygen level was below normal for 68 minutes. SLEEP SCHEDULE: The patient's sleep schedule on weekdays from 10:00 pm to 2:00 am until 6:45 am and on weekends from 10 or 2:00 a.m. until 7:30 a.m. FALLING ASLEEP: She does have problems with falling asleep, although no TV in bedroom. DURING SLEEP: She usually sleeps on the side position. She wakes up from sleep sometimes up to 15 times with possibly 1 or none episode of nocturia. She has history of sleep walking, panic attacks during sleep, grinding teeth, sleep talking, sweating. DURING THE DAY/SLEEP WAKE EVALUATION: In the morning, the patient wakes up tired, has episodes of anxiety. [place] Sleepiness Scale is 9. She may take naps in the afternoon during the lunch time. She may see vivid dreams during naps and also vivid dreams during the night. Sometimes she may start to see dreams while falling asleep possibly hypnagogic hallucinations. Significant amount of movements during the night and twitching legs. PAST MEDICAL HISTORY: Presently patient is a , 5 weeks; has polycystic ovary syndrome, hypothyroidism. PAST SURGICAL HISTORY: egg in 2020, hand surgery 4 years ago. SOCIAL HISTORY: Negative for smoking, alcohol consumption, last time 8 months ago. CURRENT MEDICATIONS: Metformin 500 mg twice a day. Estrogen pills and estrogen patch, progesterone, Synthroid. FAMILY HISTORY: Hypertension, heart problems. REVIEW OF SYSTEMS: Multiple awakenings from sleep. PHYSICAL EXAMINATION: GENERAL: lady without distress. BP 114/80, HR 60, RR 18, height 5 feet 3-1/2 inches, weight 196.6 pounds, body mass index 34.1, temperature 97.1, oxygen saturation on room air 100%. Oropharynx: Extremely low position of soft palate, Mallampati 4. NECK 15 inches in circumference. Neck: Supple, no JVD. Thyroid is not palpable. LUNGS: Clear to percussion and to auscultation. Good air exchange. No wheezing or rhonchi. HEART: S1, S2 regular. No murmurs, gallops, or rubs. ABDOMEN: Obese. Soft and nontender. Bowel sounds are present. No organomegaly appreciated. EXTREMITIES: No clubbing or cyanosis. VETER[employer] ADVISER: Awake, alert, and oriented X3. Cranial nerves 2 to 7 intact. There is no fasciculation or atrophy. noted. No focal deficits observed. IMPRESSION: 1. Multiple awakenings from sleep, extremely low position of soft palate, Mallampati 4, possible obstructive sleep apnea-hypopnea syndrome, although the previous home sleep apnea test which was done by another institution did not show apneas or hypopneas. At the same time, during that test, oxygen desaturation to 79% was documented and patient oxygen was below 88% for 68 minutes. 2. Significant amount of twitching during the night, periodic limb movement syndrome. 3. 5 weeks. 4. Status post retrieved egg. 5. History of polycystic ovary syndrome. 6. Hypothyroidism. 7. Status post hand surgery. 8. Headaches. 9. Sleep talking. 10.Possibly episodes of cch-ry-[id number] movements. 11.History of sleepwalking in the past. PLAN: 1. Polysomnography for rechecking patient's breathing during sleep and to check for periodic limb movements. 2. Sleep hygiene with regular time in bed for at least 8 hours. 3. Precautions related to driving. No driving if feeling sleepiness. 4. Watching weight. Thank you very much for referring this patient for consultation. Sincerely, Ryne Castillo MD, PhD, FAASM Diplomat of [employer] Sleep Medicine Board of [employer] [employer] [facility] [place] MMODL / IJN: [id number] /
== END ==
LOC: SLEEP 14:33
PROVIDERS: ATTEND Internal Medicine
DX: G47.36 Sleep related hypoventilation in conditions classified elsewhere (principal); G47.61 Periodic limb movement disorder; E03.9 Hypothyroidism, unspecified; G47.8 Other sleep disorders; Z3A.01 Less than 8 weeks gestation of pregnancy; Z87.42 Personal history of other diseases of the female genital tract; Z98.890 Other specified postprocedural states; Z52.819 Egg (Oocyte) donor, unspecified
CPT/HCPCS: 99211

== ENCOUNTER → 2021-09-21 | Outpatient (CLI) | payer OTHER | END | disposition home or self-care (01) | LOC: LABWHC1 08:36 | PROVIDERS: ATTEND Obstetrics & Gynecology Reproductive Endocrinology | DX: E28.2 Polycystic ovarian syndrome (principal) | CPT/HCPCS: 36415; 82670; 84144; 84702 ==

== ENCOUNTER → 2021-09-25 | Outpatient (CLI) | payer OTHER ==
[2021-09-25 13:32] LABS: HCG,Quantitative Serum 11379.3 mIU/mL
== END | disposition home or self-care (01) ==
LOC: LABWHC1 11:11
PROVIDERS: ATTEND Obstetrics & Gynecology Reproductive Endocrinology
DX: E28.2 Polycystic ovarian syndrome (principal)
CPT/HCPCS: 36415; 82670; 84144; 84702

== ENCOUNTER 2021-11-03 19:52 | Emergency (ER) | payer OTHER ==
[2021-11-03 20:07] VITALS: BP 139/81; RESP 20; TEMP 98.1
[2021-11-03 20:40] LABS: Basophils % (A) 0 %; Eosinophils # (A) 0.1 k/uL (0-0.7); Eosinophils % (A) 1 %; HCT 36.5 % (34.0-46.0); HGB 12.6 gm/dL (11.4-16.0); Lymphocytes # (A) 2.2 k/uL (1.0-4.8); Lymphocytes % (A) 21 %; MCH 30.8 pg (25.0-35.0); MCHC 34.6 g/dL (31.0-37.0); Mean Platelet Volume 8.2; Monocytes # (A) 0.4 k/uL (0-1.0); Monocytes % (A) 4 %; Neutrophils # (A) 7.7 k/uL (1.3-7.7); Neutrophils % (A) 73 %; Platelet Count 261 k/uL (150-450); RDW 12.9 % (11.5-15.5); WBC 10.6 k/uL (3.8-10.6)
[2021-11-03 20:51] LABS: ALT 17 U/L (4-34); AST 18 U/L (14-36); African American GFR (CKD) >90 (>60 ml/min/1.73 sqM); Albumin 3.9 g/dL (3.5-5.0); Alkaline Phosphatase 58 U/L (38-126); Anion Gap 8 mmol/L; Blood Urea Nitrogen 9 mg/dL (7-17); Carbon Dioxide 22 mmol/L (22-30); Chloride 103 mmol/L (98-107); Glucose 118 mg/dL (74-99); Non-African American GFR(CKD) >90 (>60 ml/min/1.73 sqM); Sodium 133 mmol/L (137-145); Total Bilirubin 0.4 mg/dL (0.2-1.3); Total Protein 7.1 g/dL (6.3-8.2)
--- NOTE | 2021-11-03 21:41 | US ---
EXAMINATION TYPE: US OB <= 14 wk twins DATE OF EXAM: 11/03/2021 COMPARISON: NONE CLINICAL HISTORY: Vaginal bleeding 12 weeks. Bleeding x 1 day EXAM PERFORMED: Transabdominal (TA) EXAM MEASUREMENTS: GESTATIONAL AGE / DATING Physician Established: (11 weeks/5 days) EDC: 05/20/2022 Dates by LMP: LMP unknown Dates by First Scan: No previous this is first scan Dates by Current Scan for Baby A: (11 weeks/4 days) EDC: 05/21/2022 Dates by Current Scan for Baby B: (11 weeks/5 days) EDC: 05/20/2022 MATERNAL ANATOMY Uterus: 16.5 x 6.6 x 10.6cm Right Ovary: 5.1 x 3.7 x 4.5cm Left Ovary: 6.0 x 3.0 x 5.1cm Post CDS / Adnexa: wnl Presence of free fluid: no Presence of two separate gestational sacs: yes GESTATION / SURVEY TWIN A CRL: 4.8cm (11 wks/4 days) Yolk Sac (normal less than 6mm): not seen Heart Rate: 158 bpm Rhythm: Normal IUP: Viable IUP TWIN B CRL: 4.8cm (11 wks/5 days) Yolk Sac (normal less than 6mm): not seen Heart Rate: 174 bpm Rhythm: Normal IUP: Viable IUP IMPRESSION: Twin live intrauterine pregnancies; fetus A age of 11 weeks 4 days and fetus B 11 weeks and 5 days.
--- NOTE | 2021-11-04 00:29 | ED ---
General Adult HPI - General Chief complaint: Vaginal Bleeding Stated complaint: 12 weeks Preg, Bleeding Time Seen by Provider: 11/03/21 23:49 Source: patient Mode of arrival: ambulatory Limitations: no limitations - History of Present Illness Initial comments: 36-year-old female patient presented to the emergency department today for evaluation of vaginal bleeding in . Patient reports she is 11 weeks 6 days with her first . This is a twin gestation via IVF. Primary infertility reason was PCOS. Bleeding started just prior to arrival to the emergency department. States she soaked through her pants and did pass a few blood clots. She denies any abdominal cramping or back pain. Denies any bleeding during this prior to this. States she did stop taking progesterone oil and estrogen supplements on Saturday. She will be seeing Dr. Kruger and does have an appointment at the office on Saturday. - Related Data Home Medications Medication Instructions Recorded Confirmed Omeprazole 40 mg PO DAILY 03/05/18 03/05/18 SUMAtriptan SUCCINATE [Sumavel 6 mg SQ ONCE PRN 03/05/18 03/05/18 Dosepro] Previous Rx's Medication Instructions Recorded HYDROcodone/APAP 5-325MG [[place] 1 tab PO Q6HR PRN 3 Days #12 tab 03/09/18 5-325] Sulfamethox-Tmp 800-160Mg [Bactrim 1 tab PO Q12HR 5 Days #10 tab 03/09/18 DS 800-160 mg] Albuterol Sulfate [Proair Hfa] 1 - 2 puff INHALATION Q6HR PRN #1 12/28/20 inhaler Allergies Allergy/AdvReac Type Severity Reaction Status Date / Time No Known Allergies Allergy Verified 11/03/21 20:04 Review of Systems ROS Statement: Those systems with pertinent positive or pertinent negative responses have been documented in the HPI. ROS Other: All systems not noted in ROS Statement are negative. Past Medical History Past Medical History: No Reported History Additional Past Medical History / Comment(s): migraines History of Any Multi-Drug Resistant Organisms: None Reported Additional Past Surgical History / Comment(s): LEFT AND RIGHT HAND SURGERY Past Psychological History: ADD/ADHD Smoking Status: Never smoker Past Alcohol Use History: None Reported Past Drug Use History: None Reported General Exam Limitations: no limitations General appearance: alert, in no apparent distress, other (This is a well- developed, well-nourished, nontoxic appearing adult female in no acute distress.) Eye exam: Present: normal appearance, PERRL, EOMI. Absent: scleral icterus, conjunctival injection, periorbital swelling ENT exam: Present: normal exam, normal oropharynx, mucous membranes moist Respiratory exam: Present: normal lung sounds bilaterally. Absent: respiratory distress, wheezes, rales, rhonchi, stridor Cardiovascular Exam: Present: regular rate, normal rhythm, normal heart sounds. Absent: systolic murmur, diastolic murmur, rubs, gallop, clicks GI/Abdominal exam: Present: soft, normal bowel sounds. Absent: distended, tenderness, guarding, rebound, rigid External exam: Present: normal external exam Speculum exam: Present: vaginal bleeding (Mild dark red, no blood clots noted in the vault.), other (Cervical os closed) Neurological exam: Present: alert, oriented X3, CN II-XII intact Psychiatric exam: Present: normal affect, normal mood Skin exam: Present: warm, dry, intact, normal color. Absent: rash Course Vital Signs 11/03/21 11/04/21 20:04 00:38 Temperature 98.1 F Pulse Rate 121 H 98 Respiratory 20 20 Rate Blood Pressure 139/81 O2 Sat by Pulse 97 97 Oximetry Medical Decision Making - Medical Decision Making 36-year-old female patient presented for evaluation of vaginal bleeding in . Patient is 11 weeks 6 days with twins. She is . Labs reviewed and did reveal normal hemoglobin, normal platelet count. Quantitative hCG is 163,716. Ultrasound was obtained and did show a viable twin with no complicating process is noted. I didn't perform pelvic exam which did show small amount of dark red blood in the vaginal vault. No blood clots. Cervical os was closed. I did discuss findings and results with the patient. We did discuss threatened miscarriage. She is instructed to maintain pelvic rest until she is cleared by her OUTSIDE OPERATOR. She does have an appointment with her OUTSIDE OPERATOR on Saturday. She is instructed to call her IVF specialist in the morning for further instructions. Return parameters were discussed in detail. She verbalizes understanding and agrees with this plan. My attending is Dr. Badillo. - Lab Data Result diagrams: 11/03/21 20:30 11/03/21 20:30 Lab Results 11/03/21 11/03/21 11/03/21 Range/Units 20:30 20:30 20:30 WBC 10.6 (3.8-10.6) k/uL RBC 4.10 (3.80-5.40) m/uL Hgb 12.6 (11.4-16.0) gm/dL Hct 36.5 (34.0-46.0) % MCV 89.0 (80.0-100.0) fL MCH 30.8 (25.0-35.0) pg MCHC 34.6 (31.0-37.0) g/dL RDW 12.9 (11.5-15.5) % Plt Count 261 (150-450) k/uL MPV 8.2 Neutrophils % 73 % Lymphocytes % 21 % Monocytes % 4 % Eosinophils % 1 % Basophils % 0 % Neutrophils # 7.7 (1.3-7.7) k/uL Lymphocytes # 2.2 (1.0-4.8) k/uL Monocytes # 0.4 (0-1.0) k/uL Eosinophils # 0.1 (0-0.7) k/uL Basophils # 0.0 (0-0.2) k/uL Sodium 133 L (137-145) mmol/L Potassium 4.0 (3.5-5.1) mmol/L Chloride 103 (98-107) mmol/L Carbon Dioxide 22 (22-30) mmol/L Anion Gap 8 mmol/L BUN 9 (7-17) mg/dL Creatinine 0.64 (0.52-1.04) mg/dL Est GFR (CKD-EPI)AfAm >90 (>60 ml/min/1.73 sqM) Est GFR (CKD-EPI)NonAf >90 (>60 ml/min/1.73 sqM) Glucose 118 H (74-99) mg/dL Calcium 10.0 (8.4-10.2) mg/dL Total Bilirubin 0.4 (0.2-1.3) mg/dL AST 18 (14-36) U/L ALT 17 (4-34) U/L Alkaline Phosphatase 58 (38-126) U/L Total Protein 7.1 (6.3-8.2) g/dL Albumin 3.9 (3.5-5.0) g/dL HCG, Quant 161687.0 mIU/mL Blood Type A Positive Blood Type Recheck A Pos Bld Type Recheck Status No - Radiology Data Radiology results: report reviewed, image reviewed ultrasound was obtained. Report was reviewed in its entirety. Impression by Dr. Sims shows twin live intrauterine pregnancies. Fetus a age of 11 weeks 4 days and fetus be 11 weeks and 5 days. Fetus a heart rate 158, fetus b heart rate 174. Disposition Clinical Impression: Threatened miscarriage Disposition: HOME SELF-CARE Condition: Good Instructions (If sedation given, give patient instructions): Threatened Miscarriage (ED) Additional Instructions: Pelvic rest, nothing inserted into the vagina. Rest as much as possible. Call IVF specialist in the morning for instructions. Call OBGYN on Saturday. Return to the emergency department for any new, worsening, or concerning symptoms. Is patient prescribed a controlled substance at d/c from ED?: No Referrals: Bairon Rm MD [Primary Care Provider] - 1-2 days Time of Disposition: 00:29
[2021-11-04 00:46] VITALS: PULSE 98
== END 2021-11-04 00:40 | disposition home or self-care (01) ==
LOC: EC 19:52
DX: O20.0 Threatened abortion (principal); Z3A.11 11 weeks gestation of pregnancy
CPT/HCPCS: 36415; 76801; 76802; 80053; 84702; 85025; 86900; 86901; 99284

== ENCOUNTER → 2023-01-07 | Outpatient (CLI) | payer OTHER ==
[2023-01-08 02:20] LABS: HCG,Quantitative Serum <3.0 (0.0-6.0); Luteinizing Hormone 8.5 mIU/mL
[2023-01-08 02:45] LABS: Estradiol 34.6 pg/mL
== END | disposition home or self-care (01) ==
LOC: LABWHC1 16:28
PROVIDERS: ATTEND Obstetrics & Gynecology Reproductive Endocrinology
DX: N91.2 Amenorrhea, unspecified (principal)
CPT/HCPCS: 36415; 82670; 83001; 83002; 84144; 84146; 84443; 84702

== ENCOUNTER → 2024-03-23 | Outpatient (CLI) | payer OTHER ==
--- NOTE | 2024-03-23 20:33 | MR ---
EXAMINATION TYPE: MR pituitary wo/w con DATE OF EXAM: 03/23/2024 COMPARISON: 03/05/2018 HISTORY: Pituitary tumor TECHNIQUE: Multiplanar, multisequence images of the brain and brainstem is performed without and with IV contras t, utilizing 9 mL intravenous Gadavist . FINDINGS: The large pituitary mass which previously measured 1.2 x 2.1 x 1.3 cm in size has markedly decreased in size. It now measures approximately 9 x 8 x 14 mm in size. The optic chiasm and infundibulum are n ot displaced. The cavernous sinuses are normal. The suprasellar region is unremarkable IMPRESSION: Reduction in the pituitary mass as described above. No new lesions are seen.
== END | disposition home or self-care (01) ==
LOC: RADMRIMAIN 21:00
PROVIDERS: ATTEND Pediatrics
DX: D49.7 Neoplasm of unspecified behavior of endocrine glands and other parts of nervous system (principal)
CPT/HCPCS: 70553; A9585